=== PATIENT | female | born 1995 | race Caucasian/White ===

== ENCOUNTER 2019-09-08 07:27 | Emergency (ER) | payer OTHER ==
[~2019-09-08] VITALS: Ht 152.4 cm; Wt 48.5 kg
[2019-09-08] MEDS ORDERED: TAYTULLA 1 MG-1 EACH PO (07:34)
[2019-09-08] MEDS ORDERED: NORCO 5-325 TA1 EAC2 PO (08:27)
[2019-09-08 09:30] VITALS: BP 107/72
== END 2019-09-08 09:35 | disposition home or self-care (01) ==
LOC: ER 07:27
DX: S43.004A Unspecified dislocation of right shoulder joint, initial encounter (principal); Z79.899 Other long term (current) drug therapy; Z88.1 Allergy status to other antibiotic agents; W18.39XA Other fall on same level, initial encounter; Y93.89 Activity, other specified; Y92.89 Other specified places as the place of occurrence of the external cause; Y99.8 Other external cause status